=== PATIENT | male | born 1970 | race African-American/Black ===

== ENCOUNTER 2024-05-03 11:42 | Emergency (ER) | payer BC, OTHER ==
[2024-05-03] MEDS ORDERED: Clindamycin 150 MG CAP ONE (12:04)
== END 2024-05-03 12:15 | disposition home or self-care (01) ==
LOC: NAV ERS 11:42
DX: L03.115 Cellulitis of right lower limb (principal); Z87.891 Personal history of nicotine dependence
CPT/HCPCS: 99283